=== PATIENT | male | born 1985 | race Caucasian/White ===

== ENCOUNTER 2018-02-04 14:43 | Emergency (ER) | payer BC, OTHER ==
[2018-02-04 16:06] LABS: Basophils % (A) 0 %; Eosinophils # (A) 0.2 k/uL (0-0.7); Eosinophils % (A) 3 %; HCT 41.9 % (39.0-53.0); HGB 14.7 gm/dL (13.0-17.5); Lymphocytes # (A) 2.4 k/uL (1.0-4.8); Lymphocytes % (A) 26 %; MCH 32.1 pg (25.0-35.0); MCHC 35.1 g/dL (31.0-37.0); MCV 91.4 fL (80.0-100.0); Mean Platelet Volume 9.2; Monocytes # (A) 0.5 k/uL (0-1.0); Monocytes % (A) 5 %; Neutrophils # (A) 5.9 k/uL (1.3-7.7); Neutrophils % (A) 64 %; Platelet Count 162 k/uL (150-450); RBC 4.59 m/uL (4.30-5.90); RDW 12.4 % (11.5-15.5); WBC 9.2 k/uL (3.8-10.6)
--- NOTE | 2018-02-04 16:09 | XR ---
Abdomen HISTORY: Pain in right side Frontal view of the abdomen on 2 images No comparisons There is a mild spinal curvature. Lung bases are clear. No evident pneumoperitoneum or bowel obstruct ion, no pathologic calcification is seen. Bone mineralization is normal. IMPRESSION: Nonobstructive bowel gas pattern.
[2018-02-04 16:15] LABS: ALT 41 U/L (21-72); AST 30 U/L (17-59); Albumin 4.6 g/dL (3.5-5.0); Alkaline Phosphatase 75 U/L (38-126); Amylase 50 U/L (30-110); Anion Gap 12 mmol/L; Blood Urea Nitrogen 16 mg/dL (9-20); Calcium 9.5 mg/dL (8.4-10.2); Carbon Dioxide 26 mmol/L (22-30); Chloride 104 mmol/L (98-107); Glucose 96 mg/dL (74-99); Lipase 87 U/L (23-300); Potassium 4.5 mmol/L (3.5-5.1); Sodium 142 mmol/L (137-145); Total Bilirubin 0.4 mg/dL (0.2-1.3); Total Protein 7.4 g/dL (6.3-8.2)
[2018-02-04 17:22] LABS: Appearance,Urine Clear (Clear); Bilirubin,Urine Negative (Negative); Blood,Urine Negative (Negative); Color,Urine Yellow; Glucose,Urine (UA) Negative (Negative); Ketones,Urine Negative (Negative); Leukocyte Esterase,Urine Negative (Negative); Nitrite,Urine Negative (Negative); PH, Urine 5.5 (5.0-8.0); Protein,Urine Negative (Negative); Specific Gravity,Urine 1.015 (1.001-1.035); Urobilinogen,Urine <2.0 mg/dL (<2.0)
[2018-02-04] MEDS ORDERED: IBUPROFEN 600 MG TAB PO STA (22:07)
--- NOTE | 2018-02-04 22:11 | ED ---
Abdominal Pain HPI - General Chief Complaint: Abdominal Pain Stated Complaint: Abd Pain/Back Pain Time Seen by Provider: 02/04/18 20:59 Source: patient, RN notes reviewed Mode of arrival: ambulatory Limitations: no limitations - History of Present Illness Initial Comments: 32-year-old male presents to the emergency department for a chief complaint of abdominal pain 3 days. Patient states that the pain is in his right upper side and radiates to his back. Patient states laying down in one position makes the pain better. Patient states that movement makes the pain worse. Patient denies nausea or vomiting. Patient denies diarrhea. Patient denies any fevers or chills at home. Patient states Motrin helps the pain. Patient denies history of kidney stones. Patient has no other complaints at this time including shortness of breath, chest pain, abdominal pain, nausea or vomiting, headache, or visual changes. - Related Data Home Medications Medication Instructions Recorded Confirmed Ibuprofen [Motrin Ib] 600 - 800 mg PO TID PRN 02/04/18 02/04/18 Omeprazole Magnesium [PriLOSEC OTC] 20 mg PO DAILY 02/04/18 02/04/18 Previous Rx's Medication Instructions Recorded Pantoprazole [Protonix] 40 mg PO DAILY #20 tablet. 02/04/18 Allergies Allergy/AdvReac Type Severity Reaction Status Date / Time No Known Allergies Allergy Verified 02/04/18 19:52 Review of Systems ROS Statement: Those systems with pertinent positive or pertinent negative responses have been documented in the HPI. ROS Other: All systems not noted in ROS Statement are negative. Past Medical History Past Medical History: GERD/Reflux History of Any Multi-Drug Resistant Organisms: None Reported Additional Past Surgical History / Comment(s): stomach has child Past Psychological History: No Psychological Hx Reported Smoking Status: Current every day smoker Past Alcohol Use History: None Reported Past Drug Use History: Marijuana General Exam Limitations: no limitations General appearance: alert, in no apparent distress Head exam: Present: atraumatic, normocephalic, normal inspection Eye exam: Present: normal appearance ENT exam: Present: normal exam, mucous membranes moist Neck exam: Present: normal inspection, full ROM. Absent: tenderness, meningismus, lymphadenopathy Respiratory exam: Present: normal lung sounds bilaterally. Absent: respiratory distress, wheezes, rales, rhonchi, stridor Cardiovascular Exam: Present: regular rate, normal rhythm, normal heart sounds. Absent: systolic murmur, diastolic murmur, rubs, gallop, clicks GI/Abdominal exam: Present: soft, tenderness (Tenderness to light and deep palpation in the right upper quadrant. Positive Robins's sign.), normal bowel sounds, other (Negative obturator, Rovsing). Absent: distended, guarding, rebound, rigid Course Vital Signs 02/04/18 02/04/18 02/04/18 15:48 20:05 22:18 Temperature 98.1 F 97.9 F 97.1 F L Pulse Rate 72 69 58 L Respiratory 18 16 15 Rate Blood Pressure 123/70 133/81 115/75 O2 Sat by Pulse 97 99 97 Oximetry 02/04/18 23:18 Temperature Pulse Rate Respiratory 16 Rate Blood Pressure O2 Sat by Pulse Oximetry Medical Decision Making - Medical Decision Making 32-year-old male presents to the emergency department for a chief complaint of abdominal pain 3 days. Patient states that laying still makes the pain better. Patient denies fevers or chills, nausea or vomiting, or diarrhea at home. Pain is helped by Motrin. Patient was given Motrin in the emergency department. On exam patient does have right upper quadrant tenderness with a positive Robins sign. No tenderness elsewhere in the abdomen. No CVA tenderness. CBC and CMP are within normal limits. Urinalysis is clear. KUB shows no abnormalities. Ultrasound of the right upper quadrant demonstrates no gallstones or dilated bile ducts. On reevaluation, patient agrees he may have pulled a muscle in the right-sided abdomen on Sunday. Pain completely resolved after motrin given. He will take Motrin and Tylenol for pain at home. He will monitor for worsening symptoms and return if these occur. He will follow up with primary care in 1-2 days. - Lab Data Result diagrams: 02/04/18 15:55 02/04/18 15:55 Lab Results 02/04/18 02/04/18 02/04/18 Range/Units 15:55 15:55 17:14 WBC 9.2 (3.8-10.6) k/uL RBC 4.59 (4.30-5.90) m/uL Hgb 14.7 (13.0-17.5) gm/dL Hct 41.9 (39.0-53.0) % MCV 91.4 (80.0-100.0) fL MCH 32.1 (25.0-35.0) pg MCHC 35.1 (31.0-37.0) g/dL RDW 12.4 (11.5-15.5) % Plt Count 162 (150-450) k/uL Neutrophils % 64 % Lymphocytes % 26 % Monocytes % 5 % Eosinophils % 3 % Basophils % 0 % Neutrophils # 5.9 (1.3-7.7) k/uL Lymphocytes # 2.4 (1.0-4.8) k/uL Monocytes # 0.5 (0-1.0) k/uL Eosinophils # 0.2 (0-0.7) k/uL Basophils # 0.0 (0-0.2) k/uL Sodium 142 (137-145) mmol/L Potassium 4.5 (3.5-5.1) mmol/L Chloride 104 (98-107) mmol/L Carbon Dioxide 26 (22-30) mmol/L Anion Gap 12 mmol/L BUN 16 (9-20) mg/dL Creatinine 1.06 (0.66-1.25) mg/dL Est GFR (CKD-EPI)AfAm >90 (>60 ml/min/1.73 sqM) Est GFR (CKD-EPI)NonAf >90 (>60 ml/min/1.73 sqM) Glucose 96 (74-99) mg/dL Calcium 9.5 (8.4-10.2) mg/dL Total Bilirubin 0.4 (0.2-1.3) mg/dL AST 30 (17-59) U/L ALT 41 (21-72) U/L Alkaline Phosphatase 75 (38-126) U/L Total Protein 7.4 (6.3-8.2) g/dL Albumin 4.6 (3.5-5.0) g/dL Amylase 50 (30-110) U/L Lipase 87 (23-300) U/L Urine Color Yellow Urine Appearance Clear (Clear) Urine pH 5.5 (5.0-8.0) Ur Specific [place] 1.015 (1.001-1.035) Urine Protein Negative (Negative) Urine Glucose (UA) Negative (Negative) Urine Ketones Negative (Negative) Urine Blood Negative (Negative) Urine Nitrite Negative (Negative) Urine Bilirubin Negative (Negative) Urine Urobilinogen <2.0 (<2.0) mg/dL Ur Leukocyte Esterase Negative (Negative) Disposition Clinical Impression: Abdominal pain Disposition: HOME SELF-CARE Condition: Good Instructions: Abdominal Pain (ED) Additional Instructions: Please take Motrin or Tylenol for pain. Please follow-up with primary care in 1 -2 days. If symptoms worsen return to the emergency department. Prescriptions: Pantoprazole [Protonix] 40 mg PO DAILY #20 tablet.dr Is patient prescribed a controlled substance at d/c from ED?: No Referrals: Merritt Guevara MD [STAFF PHYSICIAN] - 1-2 days Time of Disposition: 23:01
[2018-02-04 22:19] VITALS: BP 115/75; PULSE 58; TEMP 97.1
--- NOTE | 2018-02-04 22:39 | US ---
EXAMINATION TYPE: US gallbladder DATE OF EXAM: 02/04/2018 COMPARISON: NONE CLINICAL HISTORY: Pain. RUQ pain EXAM MEASUREMENTS: Liver Length: 19 cm Gallbladder Wall: 0.29 cm CBD: 0.57 cm Right Kidney: 10.2 x 4.4 x 5.1 cm Pancreas: Obscured by bowel gas Liver: wnl Gallbladder: wnl Evidence for sonographic Robins's sign: No CBD: wnl Right Kidney: No hydronephrosis or masses seen IMPRESSION: Normal right upper quadrant abdominal sonogram. No gallstones or dilated ducts.
[2018-02-04 23:30] VITALS: RESP 16
== END 2018-02-04 23:18 | disposition home or self-care (01) ==
LOC: EC 14:43
DX: R10.11 Right upper quadrant pain (principal); M54.9 Dorsalgia, unspecified; K21.9 Gastro-esophageal reflux disease without esophagitis; F17.200 Nicotine dependence, unspecified, uncomplicated; Z79.899 Other long term (current) drug therapy; Z98.890 Other specified postprocedural states
CPT/HCPCS: 36415; 74018; 76705; 80053; 81003; 82150; 83690; 85025; 99284

== ENCOUNTER 2023-03-09 15:12 | Emergency (ER) | payer OTHER ==
[2023-03-09 15:20] VITALS: RESP 18; TEMP 98
[2023-03-09] MEDS ORDERED: LIDOCAINE 5% PATCH TOPICAL STA (16:27)
[2023-03-09] MEDS ORDERED: KETOROLAC 15 MG/ML 1 ML VIAL IM STA (16:28)
[2023-03-09] MEDS ORDERED: ACETAMINOPHEN TAB 325 MG TAB PO STA (16:28)
[2023-03-09] MEDS ORDERED: ORPHENADRINE 30 MG/ML 2 ML VIAL IM STA (16:28)
--- NOTE | 2023-03-09 16:33 | ED ---
General Adult HPI - General Chief complaint: Back Pain/Injury Stated complaint: back pain-[facility] Time Seen by Provider: 03/09/23 16:17 Source: patient, RN notes reviewed Mode of arrival: ambulatory Limitations: no limitations - History of Present Illness Initial comments: 37-year-old male presents to the emergency department with chief complaint of back pain. He states that he was moving a couch yesterday at work when he felt sudden pain in his low back, mostly right sided. He reports worsened pain with walking and bending over. Denies radiation of pain. He admits to taking motrin this morning with no relief. He reports no significant past medical history. Denies fever, chills, loss of bowel or bladder function, saddle anesthesia. - Related Data Home Medications Medication Instructions Recorded Confirmed Ibuprofen [Motrin Ib] 600 - 800 mg PO TID PRN 02/04/18 02/04/18 Omeprazole Magnesium [PriLOSEC OTC] 20 mg PO DAILY 02/04/18 02/04/18 Previous Rx's Medication Instructions Recorded Pantoprazole [Protonix] 40 mg PO DAILY #20 tablet. 02/04/18 Cyclobenzaprine [Flexeril] 5 mg PO TID #15 tablet 03/09/23 methylPREDNISolone [Medrol Dose 0 mg PO DIRECTED #1 packet 03/09/23 Pack] Allergies Allergy/AdvReac Type Severity Reaction Status Date / Time No Known Allergies Allergy Verified 03/09/23 15:20 Review of Systems ROS Statement: Those systems with pertinent positive or pertinent negative responses have been documented in the HPI. ROS Other: All systems not noted in ROS Statement are negative. Past Medical History Past Medical History: GERD/Reflux History of Any Multi-Drug Resistant Organisms: None Reported Additional Past Surgical History / Comment(s): stomach has child Past Psychological History: No Psychological Hx Reported Smoking Status: Current every day smoker Past Alcohol Use History: Occasional Past Drug Use History: Marijuana General Exam Limitations: no limitations General appearance: alert, in no apparent distress Head exam: Present: atraumatic, normocephalic, normal inspection Eye exam: Present: normal appearance, PERRL, EOMI. Absent: scleral icterus, conjunctival injection, periorbital swelling ENT exam: Present: normal exam, mucous membranes moist Neck exam: Present: normal inspection. Absent: tenderness, meningismus, lymphadenopathy Respiratory exam: Present: normal lung sounds bilaterally. Absent: respiratory distress, wheezes, rales, rhonchi, stridor Cardiovascular Exam: Present: regular rate, normal rhythm, normal heart sounds. Absent: systolic murmur, diastolic murmur, rubs, gallop, clicks GI/Abdominal exam: Present: soft, normal bowel sounds. Absent: distended, tenderness, guarding, rebound, rigid Extremities exam: Present: normal inspection, full ROM, normal capillary refill, other (DP and PT pulses 2+ ). Absent: tenderness, pedal edema, joint swelling, calf tenderness Back exam: Present: tenderness (right low back ), paraspinal tenderness. Absent: CVA tenderness (R), CVA tenderness (L), rash noted Neurological exam: Present: alert, oriented X3 Psychiatric exam: Present: normal affect, normal mood Skin exam: Present: warm, dry, intact, normal color. Absent: rash Course Vital Signs 03/09/23 03/09/23 15:18 17:34 Temperature 98 F 98 F Pulse Rate 72 76 Respiratory 18 18 Rate Blood Pressure 143/81 139/71 O2 Sat by Pulse 99 99 Oximetry Medical Decision Making - Medical Decision Making Was pt. sent in by a medical professional or institution ([facility], INSPECTOR WREATH, urgent care, hospital, or [facility]...) When possible be specific @ -No Did you speak to anyone other than the patient for history (EMS, parent, family, police, friend...)? What history was obtained from this source @ -No Did you review nursing and triage notes (agree or disagree)? Why? @ -I reviewed and agree with nursing and triage notes Were old charts reviewed (outside hosp., previous admission, EMS record, old EKG, old radiological studies, urgent care reports/EKG's, [facility] records)? Report findings @ -No old charts were reviewed Differential Diagnosis (chest pain, altered mental status, abdominal pain women, abdominal pain men, vaginal bleeding, weakness, fever, dyspnea, syncope, headache, dizziness, GI bleed, back pain, seizure, CVA, palpatations, mental health, musculoskeletal)? @ -Differential Back Pain: Strain, zoster, cauda equina syndrome, epidural abscess, vertebral osteomyelitis, discitis, fracture, subluxation, disc herniation, DJD, spinal stenosis, dissection, AAA, pancreatitis, peptic ulcer disease, pyelonephritis, kidney stone, this is not meant to be an all-inclusive list. EKG interpreted by me (3pts min.). @ -none X-rays interpreted by me (1pt min.). @ -XR lumbar spine showed no evidence of acute fracture CT interpreted by me (1pt min.). @ -None done U/S interpreted by me (1pt. min.). @ -None done What testing was considered but not performed or refused? (CT, X-rays, U/S, labs)? Why? @ -None What meds were considered but not given or refused? Why? @ -None Did you discuss the management of the patient with other professionals (professionals i.e. , PA, INSPECTOR WREATH, lab, RT, psych nurse, social service liaison, engineering program analyst, teacher, aeronautical engineering officer, director case management)? Give summary @ -No Was smoking cessation discussed for >3mins.? @ -No Was critical care preformed (if so, how long)? @ -No Were there social determinants of health that impacted care today? How? (Homeles sness, low income, unemployed, alcoholism, drug addiction, transportation, low edu. Level, literacy, decrease access to med. care, fci, rehab)? @ -No Was there de-escalation of care discussed even if they declined (Discuss DNR or withdrawal of care, Hospice)? DNR status @ -No What co-morbidities impacted this encounter? (DM, HTN, Smoking, COPD, CAD, Cancer, CVA, ARF, Chemo, Hep., AIDS, mental health diagnosis, sleep apnea, morbid obesity)? @ -None Was patient admitted / discharged? Hospital course, mention meds given and route, prescriptions, significant lab abnormalities, going to OR and other pertinent info. @ -Discharged. Patient presented to the emergency department for chief complaint of low back pain that started after lifting a couch at work. He reports that the pain is nonradiating. He is not having any red flag symptoms at this time including loss of bowel or bladder function, urinary retention, saddle anesthesia. X-ray obtained which showed no evidence of acute fracture. Patient was given IM Norflex, Toradol, tylenol and a lidocaine patch which improved his pain. Prescription sent to patient's pharmacy for flexeril and a medrol dose pack. Patient agreeable with plan. Patient stable at time of discharge. Case discussed with my attending, Dr. De La Torre Undiagnosed new problem with uncertain prognosis? @ -No Drug Therapy requiring intensive monitoring for toxicity (Heparin, Nitro, Insulin, Cardizem)? @ -No Were any procedures done? @ -No Diagnosis/symptom? @ -Mechanical back pain Acute, or Chronic, or Acute on Chronic? @ -Acute Uncomplicated (without systemic symptoms) or Complicated (systemic symptoms)? @ -uncomplicated Side effects of treatment? @ -No Exacerbation, Progression, or Severe Exacerbation? @ -No Poses a threat to life or bodily function? How? (Chest pain, [place], [place], pneumonia, PE, COPD, DKA, ARF, appy, cholecystitis, CVA, Diverticulitis, Homicidal, Suicidal, threat to staff... and all critical care pts) @ -No Disposition Clinical Impression: Strain of lumbar region Disposition: HOME SELF-CARE Condition: Stable Instructions (If sedation given, give patient instructions): Acute Low Back Pain (ED) Additional Instructions: Take medications as prescribed. You may take Tylenol with this regimen as well. Return to the emergency department for new or worsening symptoms. Prescriptions: Cyclobenzaprine [Flexeril] 5 mg PO TID #15 tablet methylPREDNISolone [Medrol Dose Pack] 0 mg PO DIRECTED #1 packet Is patient prescribed a controlled substance at d/c from ED?: No Referrals: None,Stated [Primary Care Provider] - 1-2 days Time of Disposition: 17:20
--- NOTE | 2023-03-09 17:03 | XR ---
EXAMINATION TYPE: XR lumbar spine 2 or 3V DATE OF EXAM: 03/09/2023 CLINICAL HISTORY: pain TECHNIQUE: Three views of the lumbar spine are submitted. COMPARISON: None. FINDINGS: There are 5 lumbar type vertebral bodies identified. The lumbar spine shows satisfactory alignment w ithout evidence of acute fracture or dislocation. Vertebral body heights are within normal limits. Disc spaces are within normal limits. The overlying soft tissue appears unremarkable. IMPRESSION: No acute fracture or dislocation is seen in the lumbar spine. ICD 10 NO FRACTURE, INITIAL EVALUATION
[2023-03-09 17:35] VITALS: BP 139/71; PULSE 76
== END 2023-03-09 17:36 | disposition home or self-care (01) ==
LOC: EC 15:12
DX: S39.012A Strain of muscle, fascia and tendon of lower back, initial encounter (principal); K21.9 Gastro-esophageal reflux disease without esophagitis; F17.200 Nicotine dependence, unspecified, uncomplicated; F12.90 Cannabis use, unspecified, uncomplicated; Z79.899 Other long term (current) drug therapy; X50.0XXA Overexertion from strenuous movement or load, initial encounter; Y99.0 Civilian activity done for income or pay
CPT/HCPCS: 72100; 99283; 96372 ×2; J2360; J1885

== ENCOUNTER 2023-03-17 20:15 | Emergency (ER) | payer OTHER, BC ==
[2023-03-17 20:19] VITALS: TEMP 98.2
[2023-03-17] MEDS ORDERED: KETOROLAC 15 MG/ML 1 ML VIAL IM STA (21:33)
--- NOTE | 2023-03-17 21:35 | ED ---
General Adult HPI - General Chief complaint: Extremity Injury, Lower Stated complaint: Fall-right leg injury Time Seen by Provider: 03/17/23 20:47 Source: patient Mode of arrival: wheelchair Limitations: no limitations - History of Present Illness Initial comments: 37-year-old male presenting to the ED with a chief complaint of right knee pain. Patient states that he was putting lights on his gazebo while standing up on a step stool. States that this step stool tipped over was him to fall onto his right side primarily landing on his knee. This was witnessed by his reports there is no head injury at this time. However secondary to the pain patient reports that he lost consciousness for approximately 2 seconds. Per , "sprung back up" immediately. Denies any other injury secondary to the fall. States that he is unable to ambulate secondary to the pain. No other complaints. - Related Data Home Medications Medication Instructions Recorded Confirmed Ibuprofen [Motrin Ib] 600 - 800 mg PO TID PRN 02/04/18 02/04/18 Omeprazole Magnesium [PriLOSEC OTC] 20 mg PO DAILY 02/04/18 02/04/18 Previous Rx's Medication Instructions Recorded Pantoprazole [Protonix] 40 mg PO DAILY #20 tablet. 02/04/18 Cyclobenzaprine [Flexeril] 5 mg PO TID #15 tablet 03/09/23 methylPREDNISolone [Medrol Dose 0 mg PO DIRECTED #1 packet 03/09/23 Pack] Allergies Allergy/AdvReac Type Severity Reaction Status Date / Time No Known Allergies Allergy Verified 03/09/23 15:20 Review of Systems ROS Statement: Those systems with pertinent positive or pertinent negative responses have been documented in the HPI. ROS Other: All systems not noted in ROS Statement are negative. Past Medical History Past Medical History: GERD/Reflux History of Any Multi-Drug Resistant Organisms: None Reported Additional Past Surgical History / Comment(s): stomach has child Past Psychological History: No Psychological Hx Reported Smoking Status: Current every day smoker Past Alcohol Use History: Occasional Past Drug Use History: Marijuana General Exam Limitations: no limitations General appearance: alert, in no apparent distress Head exam: Present: atraumatic, normocephalic (No Resendez's sign or raccoon's eyes.) Eye exam: Present: normal appearance, PERRL Neck exam: Present: normal inspection Respiratory exam: Present: normal lung sounds bilaterally Cardiovascular Exam: Present: regular rate, normal rhythm GI/Abdominal exam: Present: soft Extremities exam: Present: other (Pain on passive range of motion of the right lower extremity. Tenderness to palpation distal to the right knee. DP/PT pulses 2+.) Back exam: Present: other (No midline thoracic or lumbar spinal tenderness to palpation.) Neurological exam: Present: alert, oriented X3 Skin exam: Present: warm, dry Course Vital Signs 03/17/23 03/17/23 20:17 22:15 Temperature 98.2 F Pulse Rate 88 91 Respiratory 18 20 Rate Blood Pressure 152/91 127/79 O2 Sat by Pulse 98 98 Oximetry Medical Decision Making - Medical Decision Making Was pt. sent in by a medical professional or institution (, PA, PUBLIC SPEAKER, urgent care, hospital, or penitentiary...) When possible be specific @ -No Did you speak to anyone other than the patient for history (EMS, parent, family, police, friend...)? What history was obtained from this source @ -Spoke to patient's who witnessed this event and reports no head injury. Did you review nursing and triage notes (agree or disagree)? Why? @ -I reviewed and agree with nursing and triage notes Were old charts reviewed (outside hosp., previous admission, EMS record, old EKG, old radiological studies, urgent care reports/EKG's, penitentiary records)? Report findings @ -No old charts were reviewed Differential Diagnosis (chest pain, altered mental status, abdominal pain women, abdominal pain men, vaginal bleeding, weakness, fever, dyspnea, syncope, headache, dizziness, GI bleed, back pain, seizure, CVA, palpatations, mental health, musculoskeletal)? @ -Differential Musculoskeletal Muscular strain, contusion, ligament sprain, fracture, arthritis, septic arthritis, bursitis, cellulitis, muscle spasm, nerve compression, DVT, arterial occlusion, herpes zoster, electrolyte abnormality, tumor.... This is not meant to be in all inclusive list EKG interpreted by me (3pts min.). @ -None X-rays interpreted by me (1pt min.). @ -X-ray of the right knee significant for comminuted tibial plateau fracture with intra-articular extension and depression of the lateral tibia with extension into the metaphysis. Comminuted proximal fibula also fractured. CT interpreted by me (1pt min.). @ -None done U/S interpreted by me (1pt. min.). @ -None done What testing was considered but not performed or refused? (CT, X-rays, U/S, labs)? Why? @ -None What meds were considered but not given or refused? Why? @ -None Did you discuss the management of the patient with other professionals (professionals i.e. Dr., PA, PUBLIC SPEAKER, lab, RT, psych nurse, manager social media, projects manager, teacher, fire management officer, welfare case worker)? Give summary @ -Spoke to Dr. Robins of orthopedics at [facility] and was advised patient would need to be transferred. Spoke with Dr. Rouse of trauma at [facility], who accepted transfer. Was smoking cessation discussed for >3mins.? @ -No Was critical care preformed (if so, how long)? @ -No Were there social determinants of health that impacted care today? How? (Homelessness, low income, unemployed, alcoholism, drug addiction, transportation, low edu. Level, literacy, decrease access to med. care, correction, rehab)? @ -No Was there de-escalation of care discussed even if they declined (Discuss DNR or withdrawal of care, Hospice)? DNR status @ -No What co-morbidities impacted this encounter? (DM, HTN, Smoking, COPD, CAD, Cancer, CVA, ARF, Chemo, Hep., AIDS, mental health diagnosis, sleep apnea, morbid obesity)? @ -None Was patient admitted / discharged? Hospital course, mention meds given and route, prescriptions, significant lab abnormalities, going to OR and other pertinent info. @ -Transfer. Imaging significant for proximal tib fib fracture. After discussion with orthopedics here advised transfer to [facility]. Spoke to trauma team at [facility] who accepted transfer. Patient had good pain control here with 15 mg of Toradol and 4 mg of morphine. Undiagnosed new problem with uncertain prognosis? @ -No Drug Therapy requiring intensive monitoring for toxicity (Heparin, Nitro, Insulin, Cardizem)? @ -No Were any procedures done? @ -No Diagnosis/symptom? @ -Proximal tib/fib fx Acute, or Chronic, or Acute on Chronic? @ -Acute Uncomplicated (without systemic symptoms) or Complicated (systemic symptoms)? @ -Uncomplicated Side effects of treatment? @ -No Exacerbation, Progression, or Severe Exacerbation? @ -No Poses a threat to life or bodily function? How? (Chest pain, [place], [place], pneumonia, PE, COPD, DKA, ARF, appy, cholecystitis, CVA, Diverticulitis, Homicidal, Suicidal, threat to staff... and all critical care pts) @ -No Disposition Clinical Impression: Tibia fracture, Fibula fracture Disposition: OTHER INSTITUTION NOT DEFINED Condition: Good Referrals: None,Stated [Primary Care Provider] - 1-2 days Time of Disposition: 21:51 - Out of Hospital Transfer - Req. Specs Out of Hospital Transfer - Requested Specifics: Other Emergency Center ([facility])
[2023-03-17] MEDS ORDERED: MORPHINE SULFATE 4 MG/ML SYRINGE IM STA (21:42)
[2023-03-17] MEDS ORDERED: MORPHINE SULFATE 4 MG/ML SYRINGE IVP STA (21:48)
--- NOTE | 2023-03-17 21:50 | XR ---
EXAMINATION TYPE: XR knee complete RT DATE OF EXAM: 03/17/2023 9:40 PM INDICATION: Patient age:Male; 37 years old; Reason for study: right knee pain s/p fall; [facility]. COMPARISON: None. TECHNIQUE: The Right knee(s) was examined in Frontal, lateral and oblique projections. FINDINGS/IMPRESSION: * Comminuted tibial plateau fracture with intra-articular extension and depression of the lateral ti yash. Extension into the metaphysis region is present. * Comminuted Proximal fibula is also fractured.
[2023-03-17] MEDS ORDERED: NICOTINE 21MG/24HR PATCH TRANSDERM STA (22:05)
[2023-03-17 22:16] VITALS: BP 127/79; PULSE 91; RESP 20
[2023-03-17] MEDS ORDERED: ONDANSETRON 4 MG/2 ML VIAL IVP STA (22:33)
== END 2023-03-17 23:26 | disposition other institution (70) ==
LOC: EC 20:15
DX: S82.141A Displaced bicondylar fracture of right tibia, initial encounter for closed fracture (principal); S82.831A Other fracture of upper and lower end of right fibula, initial encounter for closed fracture; K21.9 Gastro-esophageal reflux disease without esophagitis; F17.200 Nicotine dependence, unspecified, uncomplicated; F12.90 Cannabis use, unspecified, uncomplicated; Z79.899 Other long term (current) drug therapy; W01.0XXA Fall on same level from slipping, tripping and stumbling without subsequent striking against object, initial encounter
CPT/HCPCS: 73562; 99284; 96374; 96372; S4990; J2270; J1885

== ENCOUNTER 2024-03-09 11:02 | Emergency (ER) | payer BC ==
--- NOTE | 2024-04-09 15:53 | XR ---
Patient Jose Smith S ID [id number] EXAMINATION TYPE: XR chest 2V DATE OF EXAM: 03/09/2024 1:37 PM CLINICAL INDICATION: Chest Pain COMPARISON: THIS EXAM WAS READ DURING PACS DOWNTIME, NO PRIORS AVAILABLE. TECHNIQUE: XR chest 2V Frontal view of the chest. FINDINGS: Lungs/Pleura: There is no evidence of pleural effusion, focal consolidation, or pneumothorax. Pulmonary vascularity: Unremarkable. Heart/mediastinum: Cardiomediastinal silhouette is unremarkable. Musculoskeletal: No acute osseous pathology. IMPRESSION: No acute cardiopulmonary disease/process.
== END 2024-03-09 14:58 | disposition home or self-care (01) ==
LOC: EC 11:02
CPT/HCPCS: 71046; 93005; 99285

== ENCOUNTER 2024-03-30 11:52 | Emergency (ER) | payer BC ==
[2024-03-30 11:59] VITALS: RESP 16; TEMP 97.5
--- NOTE | 2024-03-30 12:26 | ED ---
ENT HPI - General Chief complaint: Dental/Oral Stated complaint: dental infection Time Seen by Provider: 03/30/24 12:10 Source: patient, RN notes reviewed Mode of arrival: ambulatory Limitations: no limitations - History of Present Illness Initial comments: 38-year-old male presenting with dental pain x 1 day with facial swelling. States he believes "cut the roof of his mouth while eating nachos" 2 nights ago. States he was having pain near his right front tooth yesterday. He woke up this morning with swelling on the roof of his mouth extending into both cheeks. States he is having difficulty talking due to swelling. Denies difficulty swallowing or breathing. Denies lip or tongue swelling. Denies chest pain or shortness of breath. States he does have a known history of dental caries and has not been to the dentist in many years. Denies fever or chills. - Related Data Home Medications Medication Instructions Recorded Confirmed Ibuprofen [Motrin Ib] 600 - 800 mg PO TID PRN 02/04/18 02/04/18 Omeprazole Magnesium [PriLOSEC OTC] 20 mg PO DAILY 02/04/18 02/04/18 Previous Rx's Medication Instructions Recorded Pantoprazole [Protonix] 40 mg PO DAILY #20 tablet. 02/04/18 Cyclobenzaprine [Flexeril] 5 mg PO TID #15 tablet 03/09/23 methylPREDNISolone [Medrol Dose 0 mg PO DIRECTED #1 packet 03/09/23 Pack] Amoxic-Pot Clav 875-125Mg 1 tab PO Q12HR #20 tab 03/30/24 [Augmentin 875-125] predniSONE [Deltasone] 40 mg PO DAILY 5 Days #10 tab 03/30/24 Allergies Allergy/AdvReac Type Severity Reaction Status Date / Time No Known Allergies Allergy Verified 03/30/24 11:59 Review of Systems ROS Statement: Those systems with pertinent positive or pertinent negative responses have been documented in the HPI. ROS Other: All systems not noted in ROS Statement are negative. Past Medical History Past Medical History: GERD/Reflux History of Any Multi-Drug Resistant Organisms: None Reported Additional Past Surgical History / Comment(s): stomach has child Past Psychological History: No Psychological Hx Reported Smoking Status: Current every day smoker Past Alcohol Use History: Occasional Past Drug Use History: Marijuana General Exam Limitations: no limitations General appearance: alert, in no apparent distress Head exam: Present: atraumatic, normocephalic. Absent: normal inspection (Diffuse edema extending from the philtrum into bilateral cheeks. No tenderness, erythema, or overlying skin changes) Eye exam: Present: normal appearance, PERRL, EOMI. Absent: scleral icterus, conjunctival injection, periorbital swelling ENT exam: Present: normal exam (No erythema, drainage, or fluctuant masses), normal oropharynx, mucous membranes moist Neck exam: Present: normal inspection. Absent: tenderness, meningismus, lymphadenopathy Respiratory exam: Present: normal lung sounds bilaterally. Absent: respiratory distress, wheezes, rales, rhonchi, stridor Cardiovascular Exam: Present: regular rate, normal rhythm, normal heart sounds. Absent: systolic murmur, diastolic murmur, rubs, gallop, clicks Neurological exam: Present: alert, oriented X3 Psychiatric exam: Present: normal affect, normal mood Skin exam: Present: warm, dry, intact, normal color. Absent: rash Course Vital Signs 03/30/24 03/30/24 11:55 12:28 Temperature 97.5 F L Pulse Rate 80 Respiratory 16 Rate Blood Pressure 134/91 O2 Sat by Pulse 98 Oximetry Medical Decision Making - Medical Decision Making Was pt. sent in by a medical professional or institution (, PA, PRODUCTION SUPPORT SUPERVISOR, urgent care, hospital, or [facility]...) When possible be specific @ -No Did you speak to anyone other than the patient for history (EMS, parent, family, police, friend...)? What history was obtained from this source @ -No Did you review nursing and triage notes (agree or disagree)? Why? @ -I reviewed and agree with nursing and triage notes Were old charts reviewed (outside hosp., previous admission, EMS record, old EKG, old radiological studies, urgent care reports/EKG's, [facility] records)? Report findings @ -No old charts were reviewed Differential Diagnosis (chest pain, altered mental status, abdominal pain women, abdominal pain men, vaginal bleeding, weakness, fever, dyspnea, syncope, headache, dizziness, GI bleed, back pain, seizure, CVA, palpatations, mental health, musculoskeletal)? @ -Dental infection, dental abscess, allergic reaction, gingivitis, strep pharyngitis EKG interpreted by me (3pts min.). @ -None X-rays interpreted by me (1pt min.). @ -None done CT interpreted by me (1pt min.). @ -None done U/S interpreted by me (1pt. min.). @ -None done What testing was considered but not performed or refused? (CT, X-rays, U/S, labs)? Why? @ -None What meds were considered but not given or refused? Why? @ -None Did you discuss the management of the patient with other professionals (professionals i.e. DrBelinda, PA, PRODUCTION SUPPORT SUPERVISOR, lab, RT, psych nurse, rn social services, ironworker machine operator, teacher, hospital chief executive officer, upper caser)? Give summary @ -No Was smoking cessation discussed for >3mins.? @ -No Was critical care preformed (if so, how long)? @ -No Were there social determinants of health that impacted care today? How? (Homelessness, low income, unemployed, alcoholism, drug addiction, transportation, low edu. Level, literacy, decrease access to med. care, [facility], rehab)? @ -No Was there de-escalation of care discussed even if they declined (Discuss DNR or withdrawal of care, Hospice)? DNR status @ -No What co-morbidities impacted this encounter? (DM, HTN, Smoking, COPD, CAD, Cancer, CVA, ARF, Chemo, Hep., AIDS, mental health diagnosis, sleep apnea, morbid obesity)? @ -None Was patient admitted / discharged? Hospital course, mention meds given and route, prescriptions, significant lab abnormalities, going to OR and other pertinent info. @ -Patient was discharged. Patient was seen and evaluated for dental pain x 1 day. Vitals within normal limits. No red flag symptoms. No fluctuant mass or abscess present on physical examination. Patient given IM Solu-Medrol and Dannie adryl for facial edema. Upon reevaluation, patient reports improvement of symptoms. Discussed diagnosis of dental infection. Supportive care discussed and prescribed antibiotic as well as steroid for edema. Instructed to follow-up with dentist in 1 to 3 days. Return precautions discussed and patient is agreeable to plan. Case was discussed with my ED attending Dr. De La Torre. Patient discharged stable condition. Undiagnosed new problem with uncertain prognosis? @ -No Drug Therapy requiring intensive monitoring for toxicity (Heparin, Nitro, Insulin, Cardizem)? @ -No Were any procedures done? @ -No Diagnosis/symptom? @ -Dental infection Acute, or Chronic, or Acute on Chronic? @ -Acute Uncomplicated (without systemic symptoms) or Complicated (systemic symptoms)? @ -Uncomplicated Side effects of treatment? @ -No Exacerbation, Progression, or Severe Exacerbation? @ -No Poses a threat to life or bodily function? How? (Chest pain, [place], [place], pneumonia, PE, COPD, DKA, ARF, appy, cholecystitis, CVA, Diverticulitis, Homicidal, Suicidal, threat to staff... and all critical care pts) @ -No Disposition Clinical Impression: Dental infection Disposition: HOME SELF-CARE Condition: Stable Instructions (If sedation given, give patient instructions): Dental Abscess (ED) Additional Instructions: Please take antibiotics and steroids as prescribed. Follow-up with dentist on Sunday. Please return to the Emergency Department if symptoms worsen or any other concerns. Prescriptions: Amoxic-Pot Clav 875-125Mg [Augmentin 875-125] 1 tab PO Q12HR #20 tab predniSONE [Deltasone] 40 mg PO DAILY 5 Days #10 tab Is patient prescribed a controlled substance at d/c from ED?: No Referrals: Mitul De La Cruz [Primary Care Provider] - 1-2 days Time of Disposition: 13:18
[2024-03-30] MEDS: diphenhydrAMINE 50 MG/ML 1 ML VIAL IM STA (12:28)
[2024-03-30] MEDS: methylPREDNISolone SOD SUCCI 125 MG/2 ML VIAL IM ONE (12:29)
[2024-03-30 13:30] VITALS: BP 130/82; PULSE 62
== END 2024-03-30 13:31 | disposition home or self-care (01) ==
LOC: EC 11:52
DX: K04.7 Periapical abscess without sinus (principal); F17.200 Nicotine dependence, unspecified, uncomplicated
CPT/HCPCS: 99283; 96372; J1200; J2919